=== PATIENT | male | born 2000 | race Caucasian/White ===

== ENCOUNTER 2023-04-16 02:16 | Emergency (ER) | payer SELFPAY ==
[2023-04-16 02:19] VITALS: BP 156/90; PULSE 120; RESP 14; O2SAT 98
[2023-04-16 02:20] VITALS: PULSE 133
--- NOTE | 2023-04-16 02:23 | ECG_ITS ---
Measurements Intervals [place] Rate: 114 P: 48 MO: 138 QRS: 56 QRSD: 94 T: 29 QT: 308 QTc: 425 Interpretive Statements SINUS TACHYCARDIA BASELINE ARTIFACT- I, II, III, AVR, AVL, AVF, V1-V6 ABNORMAL ECG NO PREVIOUS ECG AVAILABLE FOR COMPARISON Electronically Signed On 04-16-2023 6:49:13 CDT by Latrell Reyez D.O.
[2023-04-16 02:35] VITALS: PULSE 112
--- NOTE | 2023-04-16 02:37 | PC.NURSE ---
Pt HR noted to be 112 on the monitor when alone in room. Upon staff entry of exam room, pt HR evans to 134
[2023-04-16 02:43] LABS: Basophils Absolute Auto 0.03 K/mm3 (0.00-0.10); Basophils Percent Auto 0.3 % (0.0-1.0); Eosinophils Absolute Auto 0.09 K/mm3 (0.02-0.50); Eosinophils Percent Auto 0.8 % (1.0-6.0); Hematocrit 35.6 % (40.0-54.0); Hemoglobin 11.7 g/dL (14.0-18.0); Immature Granulocyte Absolute 0.03 K/mm3 (0.00-0.00); Immature Granulocyte Percent A 0.3 % (0.0-0.0); Lymphocytes Absolute Auto 1.57 K/mm3 (1.10-4.50); Lymphocytes Percent Auto 13.8 % (18.0-42.0); Mean Corpuscular HGB Conc 32.9 g/dL (32.0-36.0); Mean Corpuscular Hemoglobin 26.8 pg (27.0-31.0); Mean Corpuscular Volume 81.5 fL (78.0-102.0); Mean Platelet Volume 8.6 fl (8.7-11.0); Monocytes Percent Auto 7.9 % (2.0-11.0); Neutrophils Absolute Auto 8.8 K/mm3 (1.7-7.2); Neutrophils Percent Auto 76.9 % (50.0-70.0); Platelet Count Result 294 K/mm3 (150-420); Red Blood Count 4.37 M/mm3 (4.70-6.10); Red Cell Distribution Width 14.6 % (11.6-14.4); White Blood Count 11.4 K/mm3 (4.8-10.8)
--- NOTE | 2023-04-16 02:56 | ED.ARRPALP ---
HPI - Arrhythmia/Palpitations General Chief Complaint: Chest Pain Stated Complaint: Chest Pain Source: patient and RN notes reviewed Mode of arrival: ambulatory Limitations: no limitations History of Present Illness MD complaint: rapid heart beat and heart racing Onset (ago): hour(s) (7) Duration: constant Severity: moderate Context: occurred during rest Associated symptoms: chest pain (tightness) Related Data Home Medications Medication Instructions Recorded Confirmed No Home Medications 04/16/23 04/16/23 Allergies Allergy/AdvReac Type Severity Reaction Status Date / Time No Known Allergies Allergy Mild Unverified 11/25/07 11:09 NKDA, NO LATEX Allergy Unknown Unknown Uncoded 04/16/23 02:33 Review of Systems Review of Systems: All systems reviewed & are unremarkable except as noted in HPI and below Constitutional: Constitutional: Denies excessive sweating Respiratory: Respiratory: Denies dyspnea Gastrointestinal: Gastrointestinal: Denies nausea and Denies vomiting PMFSH Past Medical History Medical History (Updated 04/16/23 @ 03:39 by Cem Thompson MD) Obesity Social History Social History (Updated 04/16/23 @ 03:04 by Cem Thompson MD) Smoking status: Current every day smoker Tobacco type: e-cigarettes/vaping Exam Const: General: healthy appearing, no acute distress and alert Nutritional Appearance: well nourished and obese Orientation/consciousness: patient oriented x3 Limitations: no limitations HENMT: Head: normal to inspection Ears: external ears normal Face/Nose/Sinus: Normal external nose present Face and sinus: normal facial exam Mouth: Yes moist mucous membranes Eyes: Conjunctivae: conjunctivae normal Pupils: Equal, round and reactive pupils present EOM: EOMs intact bilaterally Neck: Neck: normal visual inspection Resp: Effort & Inspection: normal respiratory effort Auscultation: clear to auscultation bilaterally Cardio: Rate: tachycardic Rhythm: regular rhythm GI: GI Palp: Yes Soft to palpation and No Tenderness to palpation present (GI) Auscultation: normal bowel sounds Back/Spine/Pelvis: Cervical Spine: cervical ROM normal Thoracic/Lumbar Spine: thoraco-lumbar ROM normal Skin: General skin exam: normal color Rashes: no rashes Neuro: General: patient oriented x3, moves all extremities, no focal motor deficits and CN's II-XI intact bilaterally Speech: normal speech Gait exam (Neuro): Normal gait present Extrem: General: normal to inspection and no clubbing, cyanosis or edema Psych: Mental Status: mental status grossly normal Affect: normal affect Attitude: cooperative Course Course Emergency Course: while patient was in emergency rooms heart rate came down into 89-90 range. He never had any abnormal rhythm. Vital Signs Vital signs: Vital Signs Pulse Rate 120 H 04/16/23 02:19 Respiratory Rate 14 04/16/23 02:19 Blood Pressure 156/90 H 04/16/23 02:19 Pulse Oximetry 98 04/16/23 02:19 Oxygen Delivery Room Air 04/16/23 02:19 Pulse Rate 112 H 04/16/23 02:35 Respiratory Rate 14 04/16/23 02:19 Blood Pressure 156/90 H 04/16/23 02:19 Pulse Oximetry 98 04/16/23 02:19 Oxygen Delivery Room Air 04/16/23 02:19 MDM - Arrhythmia/Palpitations Differential Diagnosis Differential diagnosis: Likely palpitations, anxiety, sinus tachycardia, ventricular tachycardia and other ( drug use, electrolyte abnormality, anemia.) Lab Data Attestation: I reviewed the patient's lab results. 04/16/23 02:39 04/16/23 02:39 Labs: Lab Results 04/16/23 Range/Units 02:39 WBC 11.4 H (4.8-10.8) K/mm3 RBC 4.37 L (4.70-6.10) M/mm3 Hgb 11.7 L (14.0-18.0) g/dL Hct 35.6 L (40.0-54.0) % MCV 81.5 (78.0-102.0) fL MCH 26.8 L (27.0-31.0) pg MCHC 32.9 (32.0-36.0) g/dL RDW 14.6 H (11.6-14.4) % Plt Count 294 (150-420) K/mm3 MPV 8.6 L (8.7-11.0) fl Immature Gran % (Auto) 0.3 H (0.0-
[2023-04-16 03:02] LABS: Alanine Aminotransferase 59 U/L (16-63); Albumin Level 3.8 g/dL (3.4-5.0); Alkaline Phosphatase 81 U/L (46-116); Anion Gap 9 mmol/L (8-16); Aspartate Amino Transferase 42 U/L (15-37); Bilirubin,Total 1.3 mg/dL (0.00-1.00); Blood Urea Nitrogen 10 mg/dL (7-18); Carbon Dioxide 29 mmol/L (21-32); Chloride 99 mmol/L (98-108); Estimated CRCL calculation 158 ml/min; Estimated Glomerular Filt Rate > 60; Glucose 105 mg/dL (70-99); Magnesium 1.6 mg/dL (1.8-2.4); Osmolality Calculated 283 mOsm/kg (285-295); Potassium 3.8 mmol/L (3.5-5.1); Sodium 137 mmol/L (136-145); Total Protein 6.9 g/dL (6.4-8.2); Troponin I 5.9 ng/L (0.00-60.4)
[2023-04-16 03:32] LABS: Amphetamine Screen Urine Negative (Negative); Barbiturate Screen Urine Negative (Negative); Benzodiazepines Screen Urine Negative (Negative); Cannabinoid Screen Urine Positive (Negative); Cocaine Screen Urine Negative (Negative); Methadone Screen Urine Negative (Negative); Opiate Screen Urine Negative (Negative); Phencyclidine Screen Urine Negative (Negative)
[2023-04-16 03:34] VITALS: BP 142/90; PULSE 89; RESP 18; O2SAT 98
== END 2023-04-16 03:47 | disposition home or self-care (01) ==
PROVIDERS: Emergency Provider Emergency Medicine; PCP Family Medicine
DX: F41.9 Anxiety disorder, unspecified (principal); R00.2 Palpitations; R00.0 Tachycardia, unspecified; F17.290 Nicotine dependence, other tobacco product, uncomplicated
CPT/HCPCS: 36415; 80053; 80307; 83735; 84484; 85025; 93005; 99284